=== PATIENT | female | born 1955 | race African-American/Black ===

== ENCOUNTER 2025-04-21 06:43 | Emergency (ER) | payer OTHER ==
[~2025-04-21] VITALS: Ht 154.9 cm; Wt 68.0 kg
[2025-04-21 06:47] VITALS: BP 146/87; PULSE 98; RESP 18; TEMP 98.1; O2SAT 99
[2025-04-21] MEDS ORDERED: BUPR-710 PO (09:03)
[2025-04-21] MEDS ORDERED: VENL-179 PO (09:03)
[2025-04-21] MEDS ORDERED: EPIN0.3A3 IM (09:03)
[2025-04-21] MEDS ORDERED: [UNRECOGNIZED DRUG - CODE] PO (09:03)
[2025-04-21] MEDS ORDERED: ALBU10.7 (09:03)
[2025-04-21] MEDS ORDERED: AMLO5TAB88 PO (09:03)
[2025-04-21] MEDS ORDERED: GABA-1180 PO (09:03)
[2025-04-21] MEDS ORDERED: ATOR40TA70 PO (09:03)
[2025-04-21] MEDS ORDERED: TOPI-95 PO (09:03)
[2025-04-21 12:58] LABS: BASOPHILS % 0.4 % (0.0-2.0); EOSINOPHILS % 1.0 % (0.0-5.0); HEMATOCRIT. 39.5 % (36.0-48.0); HEMOGLOBIN. 12.4 g/dL (12.0-16.0); LYMPHOCYTES % 26.4 % (20.0-50.0); MEAN PLATELET VOLUME 7.6 fl (7.4-10.4); MONOCYTES % 14.8 % (2.0-8.0); NEUTROPHILS % 57.4 % (40.0-76.0); PLATELET 303 x1000/uL (130-400); RED BLOOD CELL COUNT 5.41 mill/uL (4.2-5.4); RED CELL DISTRIBUTION WIDTH 15.6 % (11.6-14.6)
[2025-04-21 13:16] LABS: CREATININE 1.2 mg/dL (0.6-1.0); TROPONIN I HIGH SENSITIVITY 8 ng/L (3.0-34); UREA NITROGEN BLOOD 15 mg/dL (9-23)
[2025-04-21 13:18] LABS: ASPARTATE AMINOTRANSFERASE 30 IU/L (<34); BILIRUBIN TOTAL 0.5 mg/dL (0.1-1.0); PROTEIN TOTAL 7.2 g/dL (6.0-8.3)
[2025-04-21] MEDS ORDERED: ONDANSETRON HCL 4MG/2ML INJ IV PRN (15:30)
[2025-04-21] MEDS ORDERED: GUAIFENESIN 200MG/10ML SUGAR FREE UDC PO PRN (15:30)
[2025-04-21] MEDS ORDERED: MAGNESIUM/ALUMINUM HYDROXIDE/SIMETHICONE 30ML UDC PO PRN (15:30)
[2025-04-21] MEDS ORDERED: ACETAMINOPHEN 325MG TABLET PO PRN ×2 (15:30)
[2025-04-21] MEDS ORDERED: CLONIDINE 0.1MG TABLET PO PRN (15:30)
[2025-04-21] MEDS ORDERED: DOCUSATE SODIUM 100MG CAPSULE PO PRN (15:30)
[2025-04-21] MEDS ORDERED: IPRATROPIUM/ALBUTEROL 0.5-3(2.5)MG/3ML NEB HHN PRN (15:30)
[2025-04-21] MEDS ORDERED: AMLODIPINE 5MG TABLET PO SCH (15:45)
[2025-04-21] MEDS ORDERED: ATORVASTATIN CALCIUM 40MG TABLET PO SCH (21:00)
[2025-04-22] MEDS ORDERED: BUPROPION HCL 150MG TABLET XL 24HR PO SCH (09:00)
== END 2025-04-21 17:17 | disposition left against medical advice (07) ==
LOC: ER 06:43 → EDBEDREQTM 13:07 → EDBEDREQ 13:07 → EDBEDREQSVC 15:52 → CANBEDREQ 17:06 → ER 17:17
DX: R26.2 Difficulty in walking, not elsewhere classified (principal); I10 Essential (primary) hypertension; Z79.899 Other long term (current) drug therapy; F32.9 Major depressive disorder, single episode, unspecified; E78.5 Hyperlipidemia, unspecified; J45.909 Unspecified asthma, uncomplicated; Z88.2 Allergy status to sulfonamides; W18.30XA Fall on same level, unspecified, initial encounter; Y93.89 Activity, other specified; Y92.89 Other specified places as the place of occurrence of the external cause; Y99.8 Other external cause status
CPT/HCPCS: 36415; 80053; 82550; 84484; 85025; 93005; 99284